=== PATIENT | female | born 1980 | race Caucasian/White ===

== ENCOUNTER 2021-04-09 06:58 | Outpatient (CLI) | payer BC, SELFPAY ==
--- NOTE | ~2021-04-09 | MR_ITS ---
EXAMINATION: MR brain/brain stem wo/w con EXAM DATE: 04/09/2021 08:07 INDICATION: Persistent daily headaches. TECHNIQUE: Magnetic resonance imaging (MRI) of the brain/brain stem obtained without contrast. Sagit dhara T1, axial diffusion, gradient echo (T2*), T1, T2, FLAIR sequences obtained. Patient was then inj ected with 11 cc intravenous Multihance contrast. Axial and coronal postcontrast T1 weighted sequence s obtained. There is no prior study for comparison. FINDINGS: There are no areas of restricted diffusion to suggest acute infarction. There is no acute hemorrhage seen on the T2*, a hemosiderin sensitive sequence. No intraparenchymal brain mass. The ve ntricles are normal in size. There are no extra-axial collections. Flow voids are seen in the cereb ral arteries on the T2-weighted sequences consistent with their expected patency. The orbits are unr emarkable. Soft tissue is unremarkable. There are no areas of abnormal enhancement on the postcont rast images. IMPRESSION: 1. Unremarkable brain MRI examination. Reviewed, dictated and finalized at location D. LE LOOM WEAVER
[2021-04-09 07:37] LABS: Estimated Glomerular Filt Rate > 60
== END 2021-04-09 06:59 | disposition home or self-care (01) ==
LOC: ANHIMG 07:03
PROVIDERS: PCP Physician Assistant; Visit Provider Physician Assistant
DX: G44.52 New daily persistent headache (NDPH) (principal)
CPT/HCPCS: 70553; A9577

== ENCOUNTER 2023-10-30 15:07 | Emergency (ER) | payer BC, SELFPAY ==
[2023-10-30 15:14] VITALS: BP 119/75; PULSE 87; RESP 16; TEMP 36.9; O2SAT 99
[2023-10-30 15:42] LABS: EDSTREPNEGPOS1 Presumptive Negative
[2023-10-30 15:50] LABS: EDINFLUASCREEN Negative; EDINFLUBSCREEN Negative
--- NOTE | 2023-10-30 15:52 | ED.URI ---
HPI - URI/Sore Throat General Chief Complaint: Upper Respiratory Infection Stated Complaint: CHEST TIGHTNESS/COUGH/BODY ACHES/EARACHE Time Seen by Provider: 10/30/23 15:45 Source: patient and RN notes reviewed Mode of arrival: ambulatory Limitations: no limitations History of Present Illness HPI Narrative: Patient presents today complaining of 2-3 day history of cough that is worse today, accompanied by some chest tightness and pain with coughing episodes, bilateral ear pain and pressure, body aches, fatigue. Denies sore throat. She does report some mild shortness of breath exertion. Son was recently diagnosed with strep throat. Denies history of asthma/COPD. She is a nonsmoker. No [id number] treatment prior to arrival. Related Data Home Medications Medication Instructions Recorded Confirmed drospirenone 3 mg-ethinyl 1 tablet DAILY 10/30/23 10/30/23 estradiol 0.02 mg tablet Allergies Allergy/AdvReac Type Severity Reaction Status Date / Time No Known Allergies Allergy Unverified 02/20/17 10:04 Review of Systems Review of Systems: CONSTITUTIONAL: Denies fever, chills, or sweats.+ body aches, fatigue EYES: Denies visual changes, redness, or discharge. ENT: Denies rhinorrhea, sore throat. + congestion, bilateral ear pain and pressure CARDIOVASCULAR: Denies chest pain, palpitations, or edema. RESPIRATORY: + cough, shortness of breath with exertion, chest tightness GASTROINTESTINAL: Denies abdominal pain, nausea, vomiting, or diarrhea. GENITOURINARY: Denies dysuria or hematuria. SKIN: Denies rash, itching, or wounds. MUSCULOSKELETAL: Denies back pain, joint pain, or myalgia. NEUROLOGIC: Denies headache, numbness, tingling, or weakness. PSYCH: Denies depression or anxiety. PMFSH Comments At time of signature, I have reviewed and agree with nursing past medical, surgical, social and family history unless otherwise noted. Please see nursing chart for further information. There is no relevant family history pertinent to the presenting complaint Exam Narrative: GENERAL: Well-appearing, well-nourished, and in no acute distress. HEAD: Normocephalic, atraumatic. EYES: EOMI. No redness or drainage. Conjunctivae normal. ENT: Mucous membranes pink and moist. Nares congestive. No rhinorrhea. Bilateral middle ear effusions without evidence of bacterial infection. Throat normal. Uvula midline. NECK: Normal AROM. Supple. Bilateral anterior cervical chain lymphadenopathy. CHEST: No respiratory distress. Clear to auscultation. HEART: Regular rate and rhythm. No murmur appreciated. EXTREMITIES: Normal range of motion. No edema. SKIN: Warm, dry, no rash. Capillary refill normal. Normal skin turgor. NEURO: No focal deficits. Alert and oriented x3. Gait steady. PSYCH: Normal affect. No signs of depression or anxiety. Course Course Level of Care: Express Care Visit Vital Signs Vital signs: Vital Signs Temperature 98.5 F 10/30/23 15:14 Pulse Rate 87 10/30/23 15:14 Respiratory Rate 16 10/30/23 15:14 Blood Pressure 119/75 10/30/23 15:14 Pulse Oximetry 99 10/30/23 15:14 Temperature 98.5 F 10/30/23 15:14 Pulse Rate 87 10/30/23 15:14 Respiratory Rate 16 10/30/23 15:14 Blood Pressure 119/75 10/30/23 15:14 Pulse Oximetry 99 10/30/23 15:14 Reviewed MDM - URI/Sore Throat MDM Narrative Medical decision making narrative: COVID, influenza, strep negative. Strep culture pending. Symptoms likely viral in etiology. Discussed [id number] medication use and duration of illness. Prescription for prednisone and albuterol sent to pharmacy. Anticipatory guidance given. Differential Diagnosis Differential diagnosis: Likely upper respiratory infection, otitis media, viral infection, bronchitis and other (Pneumonia, influenza, COVID-19, strep throat) Lab Data Attestation: I reviewed the patient's lab results. Lab results narrative: COVID negative Labs: Lab Resul
== END 2023-10-30 16:06 | disposition home or self-care (01) ==
PROVIDERS: Emergency Provider Nurse Practitioner; PCP Physician Assistant
DX: J06.9 Acute upper respiratory infection, unspecified (principal); Z20.822 Contact with and (suspected) exposure to COVID-19
CPT/HCPCS: 87081; 87426; 87804; 87880; 99213; G0463

== ENCOUNTER 2024-03-03 09:58 | Outpatient (CLI) | payer BC, SELFPAY ==
--- NOTE | ~2024-03-03 | XR_ITS ---
Left ankle Technique: AP, oblique, and lateral views were obtained. Clinical History: Injury Findings: No acute fracture or dislocation is seen. Osseous alignment is anatomic. Ankle mortise and other visualized joint spaces are preserved. Soft tissues are otherwise unremarkable. Impression: Unremarkable left ankle. Reviewed, dictated and finalized at location . S SUPERVISOR Impression: Unremarkable left ankle.
== END 2024-03-03 09:59 | disposition home or self-care (01) ==
PROVIDERS: PCP Physician Assistant; Visit Provider Physician Assistant
DX: R22.42 Localized swelling, mass and lump, left lower limb (principal); S99.912A Unspecified injury of left ankle, initial encounter; X58.XXXA Exposure to other specified factors, initial encounter
CPT/HCPCS: 73610

== ENCOUNTER 2024-03-04 12:25 | Outpatient (CLI) | payer BC, SELFPAY ==
--- NOTE | ~2024-03-04 | US_ITS ---
EXAM: SOFT TISSUE ULTRASOUND HISTORY: Localized swelling COMPARISON: None FINDINGS: Increased echogenicity is identified within the area of clinical concern No discrete mass is identified. IMPRESSION: Findings within the area of clinical concern which may demonstrate a subtle lipoma. If clinical concern persists, contrast-enhanced MRI may be performed. Reviewed, dictated and finalized at location A. DYNAMICS TEACHER IMPRESSION: Findings within the area of clinical concern which may demonstrate a subtle lip lisa. If clinical concern persists, contrast-enhanced MRI may be performed.
== END 2024-03-04 12:26 | disposition home or self-care (01) ==
PROVIDERS: PCP Physician Assistant; Visit Provider Physician Assistant
DX: R22.42 Localized swelling, mass and lump, left lower limb (principal); S99.912A Unspecified injury of left ankle, initial encounter; X58.XXXA Exposure to other specified factors, initial encounter
CPT/HCPCS: 76882